=== PATIENT | male | born 1980 | race Two or more races ===

== ENCOUNTER 2018-10-02 05:40 | Emergency (ER) | payer MEDICAID, OTHER ==
[~2018-10-02] VITALS: Ht 165.1 cm; Wt 83.9 kg
--- NOTE | 2018-10-02 06:04 | NUR ---
THOMAS WITH [employer]. TO ER BED 15. AAOX4. NO RESP DISTRESS NOTED, BREATHING EVEN AND UNLABORED. PER EMS REPORT PT WAS AT THE BACK OF THE POLICE AND AND REPORTED TO HAVE A SEIZURE, PT WAS REPORTED WITH HX OF SEISURE. WHEN EMS ARRIVE PT CLAIMS THAT HE IS SUICIDAL AND HOMICIDAL. PT PLANS ON HANGING OR CHOKING HIMSELF. PT ALSO REPORTS BEING HOMICIDAL, PLANS ON HURTING OTHERS BY HITTING. PT ADMITS TO HEARING VOICES IN HIS HEAD TELLIN GHIM TO HURT HIMSELF AND OTHERS. PT ALSO REPORTS HAVING ABDOMINAL DISCOMFORT AND NAUSEA. PT WAS STRIPPED OF CLOTHING AND BELONGINS. WANDED BY SECURITY. SITTER AT BEDSIDE FOR VISUAL MONITORING. AWAITING MD FOR EVAL
--- NOTE | 2018-10-02 06:04 | NUR ---
Note undone in EDM - 10/02/18 at 0613 by KATIE BIBRA WITH [employer]. TO ER BED 15. AAOX4. NO RESP DISTRESS NOTED, BREATHING EVEN AND UNLABORED. PER EMS REPORT PT WAS AT THE BACK OF THE POLICE AND AND REPORTED TO HAVE A SEIZURE, PT WAS REPORTED WITH HX OF SEISURE. WHEN EMS ARRIVE PT CLAIMS THAT HE IS SUICIDAL AND HOMICIDAL. PT PLANS ON HANGING OR CHOKING HIMSELF. PT ALSO REPORTS BEING HOMICIDAL, PLANS ON HURTING OTHERS BY HITTING. PT ALSO REPORTS HAVING ABDOMINAL DISCOMFORT AND NAUSEA. PT WAS STRIPPED OF CLOTHING AND BELONGINS. WANDED BY SECURITY. SITTER AT BEDSIDE FOR VISUAL MONITORING. AWAITING MD FOR EVAL
--- NOTE | 2018-10-02 06:09 | NUR ---
PHLEB AT BEDSIDE FOR LAB DRAW
--- NOTE | 2018-10-02 06:17 | NUR ---
PTS BELONGAINGS ARE KEPT UNDER THE SINK IN THE NURSING STATION
[2018-10-02 06:24] LABS: BASOPHILS # (AUTO) 0.1 /CMM (0.0-0.2); BASOPHILS % (AUTO) 0.7 % (0.0-2.0); EOSINOPHILS % (AUTO) 0.2 % (0.0-6.0); HEMATOCRIT 45 % (39-51); LYMPHOCYTES # (AUTO) 1.2 /CMM (0.8-4.8); LYMPHOCYTES % (AUTO) 10.2 % (20.0-44.0); MEAN CORPUSCULAR HGB CONC 36 g/dl (31.0-36.0); MEAN CORPUSCULAR VOLUME 93 fL (80-96); MONOCYTES # (AUTO) 1.1 /CMM (0.1-1.30); MONOCYTES % (AUTO) 9.4 % (2.0-12.0); NEUTROPHILS # (AUTO) 9.5 /CMM (1.8-8.9); NEUTROPHILS % (AUTO) 79.5 % (43.0-81.0); PLATELET COUNT (AUTO) 360 /CMM (150-450); RED BLOOD CELL COUNT(AUTO) 4.83 MIL/uL (4.5-6.0)
[2018-10-02 06:34] LABS: ALBUMIN 4.3 g/dL (3.4-5.0); BILIRUBIN,DIRECT 0.2 mg/dL (0.0-0.2); BILIRUBIN,TOTAL 0.6 mg/dL (0.2-1.0); CALCIUM, SERUM 9.4 mg/dL (8.5-10.1); CREATININE 0.8 mg/dL (0.6-1.3); SALICYLATE 0.5 mg/dL (2.8-20.0); TOTAL PROTEIN, SERUM 8.4 g/dL (6.4-8.2)
[2018-10-02 06:35] LABS: POTASSIUM 2.8 mmol/L (3.5-5.1)
--- NOTE | 2018-10-02 06:37 | NUR ---
URINE SENT TO LAB
[2018-10-02] MEDS ORDERED: ONDANSETRON HCL/PF 4 MG/2 ML VIAL ONE (06:41)
[2018-10-02] MEDS ORDERED: POTASSIUM CL. PREMIX PERIPHER. 50 ML ONE ×2 (06:41→08:06)
[2018-10-02] MEDS ORDERED: ONDANSETRON HCL/PF - ER 4 MG/2 ML VIAL IV ONE (07:00)
[2018-10-02] MEDS ORDERED: POTASSIUM CHLORIDE 10 MEQ/50 ML PREMIXED IVPB FOR PERIPHERAL LINE IV ONE (07:00)
[2018-10-02] MEDS ORDERED: IV NS 0.9% 1,000 ML BAG IV ONE (07:00)
--- NOTE | 2018-10-02 07:00 | NUR ---
PT NOTED WITH O2 SAT OF 86% WHEN HE IS SLEEPING. O2 SAT GOES TO 97 WHEN AWAKE. PLACED ON O2 VIA NC @ 2 LPM. AWARE
[2018-10-02 07:06] LABS: APPEARANCE,URINE CLEAR (CLEAR); BILIRUBIN,URINE 1+ (NEGATIVE); BLOOD, URINE NEGATIVE Ery/uL (NEGATIVE); COLOR,URINE YELLOW (YELLOW); KETONES,URINE 1+ (NEGATIVE); LEUKOCYTE ESTERASE ,URINE TRACE (NEGATIVE); NITRITE, URINE NEGATIVE (NEGATIVE); PROTEIN,URINE 1+ mg/dl (NEGATIVE); UGLUCOSE NEGATIVE (NEGATIVE)
--- NOTE | 2018-10-02 07:35 | NUR ---
REPORT RECEIVED FROM BARRON JENKINS FOR [facility]
[2018-10-02] MEDS ORDERED: POTASSIUM CHLORIDE 20 MEQ TAB.PRT.SR PO ONE ×2 (07:57→09:00)
[2018-10-02] MEDS: POTASSIUM CHLORIDE 20 MEQ TAB.PRT.SR PO ONE ×2 (08:05→08:40)
[2018-10-02] MEDS: POTASSIUM CHLORIDE 10 MEQ/50 ML PREMIXED IVPB FOR PERIPHERAL LINE IV ONE ×2 (08:13→08:40)
--- NOTE | 2018-10-02 08:13 | NUR ---
PT REFUSED CT SCAN, MADE AWARE.
--- NOTE | 2018-10-02 08:29 | NUR ---
FRAME OPENER MILA. SPOKE TO ART.
[2018-10-02 08:31] LABS: BACTERIA,URINE Rare /HPF (None Seen); RBC,URINE 0-2 /HPF (0-2); SQUAMOUS EPITHELIAL CELL,UR Few /HPF (None Seen)
--- NOTE | 2018-10-02 09:23 | NUR ---
BREAKFAST TRAY PROVIDED, LEFT TRAY AT BEDSIDE.
[2018-10-02] MEDS ORDERED: PANTOPRAZOLE 40 MG TABLET.DR PO ONE ×2 (09:49→10:00)
--- NOTE | 2018-10-02 10:39 | NUR ---
LABORER BITUMINOUS PAVING ANDER NICE AT BEDSIDE
[2018-10-02] MEDS ORDERED: OLANZAPINE 10 MG VIAL IM ONE ×2 (11:30→11:32)
--- NOTE | 2018-10-02 13:07 | NUR ---
ACCEPTED IN [facility] ADMITTING: DR RESENDEZ REPORT TO: [phone] EXT [id number]
--- NOTE | 2018-10-02 13:25 | NUR ---
[facility] ETA 1500 TRIP#[id number]
--- NOTE | 2018-10-02 13:34 | NUR ---
REPORT GIVEN TO OPAL JENKINS OF UNIT 2 FOR [facility]
[2018-10-02 15:13] VITALS: BP 117/68
--- NOTE | 2018-10-02 15:18 | NUR ---
Patient discharged to [facility] in stable condition. Written and verbal after care instructions given. Patient verbalizes understanding of instruction. PT WILL BE TRANSFERRED TO [facility].
== END 2018-10-02 15:33 ==
LOC: ER 05:40
DX: R45.851 Suicidal ideations (principal); E87.8 Other disorders of electrolyte and fluid balance, not elsewhere classified; R11.10 Vomiting, unspecified; F32.9 Major depressive disorder, single episode, unspecified; F10.10 Alcohol abuse, uncomplicated; E11.9 Type 2 diabetes mellitus without complications; Y90.0 Blood alcohol level of less than 20 mg/100 ml
CPT/HCPCS: 36415; 74176; 80048; 80076; 80305; 80307; 80329; 81001; 85025; 96361; 96372; 96374; 99285; G0480; J2405; J3480 ×2; J3490; J7030; J7040; 81000-TC

== ENCOUNTER 2020-04-08 23:26 | Emergency (ER) | payer MEDICAID ==
[~2020-04-08] VITALS: Ht 165.1 cm; Wt 83.9 kg
--- NOTE | 2020-04-08 23:40 | NUR ---
PT CAME TO THE ER C/O SI W/ A PLAN TO JUMP TO TRAFFIC AND HI. PT REQUESTING FOR VOLUNTARY ADMISSION AT [facility]. PT AAOX4, VSS, RESPIRATIONS EVEN AND UNLABORED ON RA W/ NAD NOTED. PT CHANGED INTO GOWN, BELONGINGS PLACED TO LOCKER. SAFETY PRECAUTIONS IMPLEMENTED. PT CONNECTED TO THE MONITOR AND POX. WILL CONTINUE TO MONITOR
[2020-04-09 00:47] LABS: BASOPHILS # (AUTO) 0.1 /CMM (0.0-0.2); EOSINOPHILS % (AUTO) 1.2 % (0.0-6.0); HEMATOCRIT 41 % (39-51); HEMOGLOBIN 13.5 g/dL (13.5-17.5); LYMPHOCYTES # (AUTO) 1.3 /CMM (0.8-4.8); LYMPHOCYTES % (AUTO) 14.5 % (20.0-44.0); MEAN CORPUSCULAR HGB CONC 33 g/dl (31.0-36.0); MEAN CORPUSCULAR VOLUME 87 fL (80-96); MONOCYTES # (AUTO) 0.9 /CMM (0.1-1.30); MONOCYTES % (AUTO) 10.2 % (2.0-12.0); NEUTROPHILS # (AUTO) 6.4 /CMM (1.8-8.9); NEUTROPHILS % (AUTO) 73.1 % (43.0-81.0); PLATELET COUNT (AUTO) 424 /CMM (150-450); RED BLOOD CELL COUNT(AUTO) 4.71 MIL/uL (4.5-6.0); WHITE BLOOD COUNT (AUTO) 8.7 K/uL (4.3-11.0)
[2020-04-09 01:10] LABS: CALCIUM, SERUM 9.1 mg/dL (8.5-10.1); CARBON DIOXIDE 31 mmol/L (21-32); CHLORIDE 95 mmol/L (98-107); CREATININE 0.6 mg/dL (0.6-1.3); GLUCOSE 100 mg/dL (74-106); POTASSIUM 3.9 mmol/L (3.5-5.1); SODIUM SERUM 133 mmol/L (136-145); UREA NITROGEN, BLOOD 8 mg/dL (7-18)
--- NOTE | 2020-04-09 01:10 | NUR ---
CALL FROM LAB. RAPID COVID NEGATIVE.
[2020-04-09 01:18] LABS: ALANINE AMINOTRANSFERASE 125 U/L (12-78); ALBUMIN 3.8 g/dL (3.4-5.0); ALCOHOL, BLOOD < 3 mg/dL (0-0); ALKALINE PHOSPHATASE 107 U/L (46-116); ASPARTATE AMINOTRANSFERASE 106 U/L (15-37); BILIRUBIN,DIRECT 0.4 mg/dL (0.0-0.2); BILIRUBIN,TOTAL 0.7 mg/dL (0.2-1.0); TOTAL PROTEIN, SERUM 8.3 g/dL (6.4-8.2)
[2020-04-09 01:27] LABS: ACETAMINOPHEN < 2 ug/ml (10-30)
[2020-04-09 01:41] LABS: BILIRUBIN,URINE NEGATIVE (NEGATIVE); COLOR,URINE YELLOW (YELLOW); LEUKOCYTE ESTERASE ,URINE MODERATE (NEGATIVE); NITRITE, URINE NEGATIVE (NEGATIVE); PROTEIN,URINE TRACE mg/dl (NEGATIVE); UGLUCOSE NEGATIVE (NEGATIVE)
[2020-04-09 01:52] LABS: BACTERIA,URINE Many /HPF (None Seen); SQUAMOUS EPITHELIAL CELL,UR Few /HPF (None Seen); WBC,URINE 81-100 /HPF (0-3)
[2020-04-09] MEDS ORDERED: CIPROFLOXACIN HCL 500 MG TABLET ONE (01:58)
[2020-04-09] MEDS ORDERED: CIPROFLOXACIN HCL 500 MG TABLET PO ONE (02:00)
--- NOTE | 2020-04-09 02:34 | NUR ---
FACESHEET AND CLINICALS FAXED TO [facility]./
--- NOTE | 2020-04-09 09:35 | NUR ---
NATO FROM [facility] CALLED PT ACCEPTED BY DR. MEEK IN [facility] PLEASE CALL [phone] UN[address] JUAN J
--- NOTE | 2020-04-09 09:40 | NUR ---
CALLED TRANSPORT [facility] ETA 1045 PER ED
[2020-04-09 10:26] VITALS: BP 127/80
--- NOTE | 2020-04-09 10:57 | NUR ---
REPORT GIVEN TO MS REYNAGA OF [facility]
--- NOTE | 2020-04-09 10:58 | NUR ---
PATIENT PICKED UP BY [facility] UN[facility] IN SATBLE CONDITION. PATIENT WILL BE TRANSFERRED TO [facility]
== END 2020-04-09 11:00 ==
LOC: ER 23:26
DX: R45.851 Suicidal ideations (principal); R45.850 Homicidal ideations; N39.0 Urinary tract infection, site not specified; Z59.0 Homelessness; F19.10 Other psychoactive substance abuse, uncomplicated; Z20.822 Contact with and (suspected) exposure to COVID-19; Z86.69 Personal history of other diseases of the nervous system and sense organs
CPT/HCPCS: 36415; 80048; 80076; 80299; 80307; 80320; 81001; 85025; 87086; 87426; 99285; C9803; 87186-TC; G0480

== ENCOUNTER 2020-06-09 18:32 | Emergency (ER) | payer MEDICAID ==
[~2020-06-09] VITALS: Ht 165.1 cm; Wt 83.9 kg
--- NOTE | 2020-06-09 18:41 | NUR ---
PT AMBULATORY TO ED. STATES FEELING SUICIDAL FOR THE LAST FEW DAYS. PT STATES HE DID HAD 1 BEER THIS MORNING AND HIS LAST METH USE WAS 3 DAYS AGO. 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 AWAITING MD AZEVEDO.
--- NOTE | 2020-06-09 18:47 | NUR ---
DR CIFUENTES AT BEDSIDE FOR EVAL.
--- NOTE | 2020-06-09 18:59 | NUR ---
PANTRY COOK IN FOR BLOOD DRAW.
[2020-06-09 19:04] LABS: BASOPHILS # (AUTO) 0.1 /CMM (0.0-0.2); BASOPHILS % (AUTO) 1.3 % (0.0-2.0); EOSINOPHILS % (AUTO) 2.8 % (0.0-6.0); HEMATOCRIT 44 % (39-51); HEMOGLOBIN 14.4 g/dL (13.5-17.5); LYMPHOCYTES # (AUTO) 2.1 /CMM (0.8-4.8); LYMPHOCYTES % (AUTO) 34.6 % (20.0-44.0); MEAN CORPUSCULAR HGB CONC 33 g/dl (31.0-36.0); MEAN CORPUSCULAR VOLUME 88 fL (80-96); MONOCYTES # (AUTO) 0.7 /CMM (0.1-1.30); MONOCYTES % (AUTO) 11.7 % (2.0-12.0); NEUTROPHILS # (AUTO) 2.9 /CMM (1.8-8.9); NEUTROPHILS % (AUTO) 49.6 % (43.0-81.0); PLATELET COUNT (AUTO) 406 /CMM (150-450); RED BLOOD CELL COUNT(AUTO) 4.98 MIL/uL (4.5-6.0); WHITE BLOOD COUNT (AUTO) 5.9 K/uL (4.3-11.0)
--- NOTE | 2020-06-09 19:21 | NUR ---
SANDEEPID SWABBED, SENT TO LAB.
[2020-06-09 19:23] LABS: ALANINE AMINOTRANSFERASE 139 U/L (12-78); ALBUMIN 3.9 g/dL (3.4-5.0); ALCOHOL, BLOOD 46 mg/dL (0-0); ALKALINE PHOSPHATASE 110 U/L (46-116); ASPARTATE AMINOTRANSFERASE 102 U/L (15-37); BILIRUBIN,DIRECT 0.1 mg/dL (0.0-0.2); BILIRUBIN,TOTAL 0.3 mg/dL (0.2-1.0); CALCIUM, SERUM 8.9 mg/dL (8.5-10.1); CARBON DIOXIDE 30 mmol/L (21-32); CHLORIDE 98 mmol/L (98-107); CREATININE 0.7 mg/dL (0.6-1.3); GLUCOSE 85 mg/dL (74-106); POTASSIUM 3.6 mmol/L (3.5-5.1); SODIUM SERUM 136 mmol/L (136-145); TOTAL PROTEIN, SERUM 8.7 g/dL (6.4-8.2); UREA NITROGEN, BLOOD 5 mg/dL (7-18)
--- NOTE | 2020-06-09 19:28 | NUR ---
URINE COLLECTED AND SENT TO THE LAB.
[2020-06-09 19:29] LABS: ACETAMINOPHEN < 10 ug/ml (10-30)
[2020-06-09 19:43] LABS: BILIRUBIN,URINE Negative (NEGATIVE); COLOR,URINE YELLOW (YELLOW); LEUKOCYTE ESTERASE ,URINE Negative (NEGATIVE); NITRITE, URINE Negative (NEGATIVE); PROTEIN,URINE Negative (NEGATIVE); UGLUCOSE Negative (NEGATIVE); UROBILINOGEN,URINE 0.2 EU/dL (0.2)
--- NOTE | 2020-06-09 23:33 | NUR ---
TRANSFER INFORMATION: PT ACCEPTED TO [facility] ACCEPTING MD: DR. LEAL/DR. KRUSE NUMBER FOR REPORT: [phone] EXT [id number]
--- NOTE | 2020-06-09 23:44 | NUR ---
CHARLOTTE AVERY. RESERVATION #[id number], WILL CALL BACK WITH CAROL ANN
--- NOTE | 2020-06-09 23:56 | NUR ---
FOOD AND JUICE PROVIDED TO PATIENT PER REQUEST, PT IMMEDIATELY THREW FOOD ON FLOOR AND IN TRASH CAN
--- NOTE | 2020-06-10 00:20 | NUR ---
PT AAOX4. CALM AND COOPERATIVE. STATES HE IS NO LONGER SUICIDAL/HOMICIDAL AT THIS TIME. AWARE. PER DR. BENAVIDES, PT MEDICALLY CLEARED FOR DISCHARGE. PT REFUSING RESOURCES AT THIS TIME. REFUSED TO SIGN HOMELESS WAIVER. AWARE.
[2020-06-10 00:21] VITALS: BP 134/80
--- NOTE | 2020-06-10 00:21 | NUR ---
PT LEFT WITH [facility]
[2020-06-10] MEDS ORDERED: GELATIN SPONGE,ABSORBABLE 1 SPONGE SPONGE TP ONE (13:30)
== END 2020-06-10 00:22 | disposition home or self-care (01) ==
LOC: ER 18:36
DX: R45.851 Suicidal ideations (principal); F20.0 Paranoid schizophrenia; F41.9 Anxiety disorder, unspecified; F15.10 Other stimulant abuse, uncomplicated; Z88.8 Allergy status to other drugs, medicaments and biological substances; Z20.822 Contact with and (suspected) exposure to COVID-19; R79.89 Other specified abnormal findings of blood chemistry
CPT/HCPCS: 36415; 80048; 80076; 80299; 80307; 80320; 81003; 85025; 87426; 99285; C9803; G0480

== ENCOUNTER 2020-10-07 08:34 | Emergency (ER) | payer MEDICAID ==
[~2020-10-07] VITALS: Ht 165.1 cm; Wt 83.9 kg
[2020-10-07 08:38] VITALS: BP 141/71
--- NOTE | 2020-10-07 08:48 | NUR ---
patient bibs d/t patient needs medications refill trileptal and gabapentin. aox4, denies sob. no s/o any acute distress noted. will continue with plan of care
[2020-10-07] MEDS ORDERED: GABA-536 PO (08:55)
[2020-10-07] MEDS ORDERED: OXCA600T5 PO (08:55)
--- NOTE | 2020-10-07 09:08 | NUR ---
Patient discharged to home in stable condition. Written and verbal after care instructions given. Patient verbalizes understanding of instruction.
== END 2020-10-07 09:08 | disposition home or self-care (01) ==
LOC: ER 08:34
DX: G40.909 Epilepsy, unspecified, not intractable, without status epilepticus (principal); Z76.0 Encounter for issue of repeat prescription; Z88.8 Allergy status to other drugs, medicaments and biological substances